=== PATIENT | male | born 1955 | race Caucasian/White ===

== ENCOUNTER 2017-10-28 07:00 | Inpatient (IN) | payer OTHER ==
[~2017-10-28] VITALS: Ht 165.1 cm; Wt 68.9 kg
[2017-11-07] MEDS ORDERED: INTEGRA PLUS C1 EACH PO (06:27)
[2017-11-07] MEDS ORDERED: OXYC1TAB9 PO (06:27)
[2017-11-07] MEDS ORDERED: XARELTO10 MG PO (06:27)
== END 2017-11-07 14:49 | DRG 470 ==
LOC: ADM 07:00 → EDSTATUS 07:00 → SURG 11-04 04:42 → O/R 11-04 04:42 → SURG 11-04 16:32
PROVIDERS: Orthopaedic Surgery Sports Medicine
PROC: 0SRC0J9 Replacement of Right Knee Joint with Synthetic Substitute, Cemented, Open Approach (ICD-10-PCS; principal; 2017-11-04 05:15)
DX: M17.11 Unilateral primary osteoarthritis, right knee (principal)